=== PATIENT | male | born 1965 | race Caucasian/White ===

== ENCOUNTER 2017-06-08 07:41 | Day surgery (SDC) | payer BC ==
[~2017-06-08 07:41] MED LIST: MIDAZOLAM INJ 2 MG/2 ML VIAL (J2250) As Ordered
[2017-06-08] MEDS: PROPARACAINE 0.5% OPHTH SOL 15ML OS (08:05)
[2017-06-08] MEDS: PHENYLEPHRINE 2.5% OPHTH SOL 2ML OS (08:06)
[2017-06-08] MEDS: OFLOXACIN 0.3 % (OCUFLOX) OPTH SOL 5ML OS (08:06)
[2017-06-08] MEDS: TROPICAMIDE 1% OPHTH SOLN 2ML OS (08:06)
[2017-06-08] MEDS ORDERED: ACETYLCHOLINE OPHTH SOLN 1% 2ML (MIOCHOL-E) As Ordered (08:30)
[2017-06-08] MEDS ORDERED: BALANCED SALT IRRIGATION SOLUTION 500ML BAG (FOR OR EYE MACHINE) As Ordered (08:30)
[2017-06-08] MEDS ORDERED: POVIDONE-IODINE 5% OPHTH PREP SOL 30ML As Ordered (08:30)
[2017-06-08] MEDS ORDERED: CEFUROXIME 1MG/0.1ML INTRACAMERAL INJ As Ordered (08:31)
[2017-06-08] MEDS ORDERED: DUOVISC (0.50ML VISCOAT/0.55ML PROVISC) OPHTH KIT As Ordered (08:31)
[2017-06-08] MEDS ORDERED: LIDOCAINE 0.75%/EPINEPHRINE 0.025% IN BSS 1ML SYR INTRACAMERAL (OR ONLY) As Ordered (08:31)
[2017-06-08] MEDS ORDERED: fentaNYL 100 MCG/2 ML INJECTION (J3010) As Ordered (08:51)
[2017-06-08] MEDS ORDERED: ACETAMINOPHEN SUSP DYE FREE 160 MG/5 ML UDC PO (10:00)
== END 2017-06-08 09:57 | disposition home or self-care (01) ==
LOC: M SDC 07:41
DX: H25.12 Age-related nuclear cataract, left eye (principal); R06.02 Shortness of breath; E66.9 Obesity, unspecified
CPT/HCPCS: 66984

== ENCOUNTER → 2024-08-07 | Outpatient (REF) | LOC: M PLAIMG 14:07 | PROVIDERS: ATTEND Internal Medicine | DX: M19.011 Primary osteoarthritis, right shoulder (principal); M17.11 Unilateral primary osteoarthritis, right knee ==